=== PATIENT | female | born 1990 | race Caucasian/White ===

== ENCOUNTER 2017-04-26 20:35 | Emergency (ER) | payer BC ==
[2017-04-26 23:54] LABS: Urine Appearance Cloudy; Urine Blood Negative (Negative); Urine Color Yellow; Urine Ketones Negative (Negative); Urine Protein Negative (Negative); Urine Specific Gravity 1.019 (1.010-1.030); Urine Urobilinogen Negative (Negative)
[2017-04-27] MEDS ORDERED: Ketorolac INJ* 30 MG/ML 1 ML VIAL IV PUSH ONE (00:01)
[2017-04-27] MEDS ORDERED: NS 0.9% 1000 ML* 1,000 ML IV ONE (00:01)
[2017-04-27] MEDS ORDERED: Levofloxacin 500 MG IVPREMIX(* 500 MG/100 ML BAG IVPB ONE (00:01)
[2017-04-27 00:39] LABS: ABS Basophils 0 10^3/ul (0-0.2); ABS Eosinophils 0.2 10^3/ul (0-0.6); ABS Lymphocytes 3.7 10^3/ul (1.0-4.8); ABS Monocytes 0.6 10^3/ul (0-0.8); ABS Nucleated RBC 0 10^3/ul; Eosinophil % 1.5 % (0-6); Hematocrit 39 % (35-47); Hemoglobin 13.2 g/dl (12.0-16.0); Lymphocyte % 32.3 % (25-47); Mean Corpuscular HGB Conc 34 g/dl (31-36); Mean Corpuscular Hemoglobin 29 pg (27-31); Mean Corpuscular Volume 85 fL (80-97); Mean Platelet Volume 8 um3 (7.4-10.4); Nucleated Red Blood Cells % 0; Platelet Count 368 10^3/ul (150-450); Red Cell Distribution Width 14 % (10.5-15); White Blood Count 11.5 10^3/ul (3.5-10.8)
[2017-04-27 00:54] LABS: EGFR Non-African American 94.9 (>60)
--- NOTE | 2017-04-27 02:10 | ED ---
Ruel Givens Angela, scribed for Zoraida Bryan MD on 04/26/17 at 2350 . GI/ HPI - HPI Summary HPI Summary: This pt is a 27 y/o female presenting to [facility] c/o urinary frequency and discomfort with urination. Pt additionally reports right sided back pain and nausea. She states that 1 month ago she was diagnosed with a UTI and was given antibiotics. 1 week later pt had the same symptoms and was diagnosed with a UTI , she was prescribed antibiotics also. Pt has taken Bactrim and Macrobid. Pt currently denies hematuria, fever, vomiting. PMHx: UTI. - History of Current Complaint Chief Complaint: EDUrogenitalProblems Time Seen by Provider: 04/26/17 23:38 Stated Complaint: DISCOMFORT URINATING/RT SIDE PAIN Hx Obtained From: Patient Hx Last Menstrual Period: 05/23/15 Onset/Duration: Started Hours Ago, Still Present Timing: Lasting Hours Current Severity: Moderate Pain Intensity: 5 Location of Pain: Diffuse Pain Radiates to: Flank - right Associated Signs and Symptoms: Positive: Back Pain, Nausea, Dysuria, UTI Symptoms - discomfort with urination. Negative: Vomiting, Fever, Hematuria Aggravating Factor(s): Nothing Alleviating Factor(s): Nothing - Allergy/Home Medications Allergies/Adverse Reactions: Allergies Allergy/AdvReac Type Severity Reaction Status Date / Time No Known Allergies Allergy Verified 04/26/17 23:34 PMH/Surg Hx/FS Hx/Imm Hx Endocrine/Hematology History: Denies: Hx Diabetes, Hx Thyroid Disease Cardiovascular History: Denies: Hx Hypertension Respiratory History: Denies: Hx Asthma History: Reports: Other Problems/Disorders - UTI - Surgical History Surgery Procedure, Year, and Place: tonsils - Immunization History Date of Influenza Vaccine: has not received Infectious Disease History: No Infectious Disease History: Denies: Traveled Outside the [place] in Last 30 Days - Family History Known Family History: Positive: Hypertension, Diabetes - Social History Alcohol Use: Occasionally Alcohol Amount: 1 glass of wine a few nights a week Substance Use Type: Reports: None Smoking Status (MU): Never Smoked Tobacco Review of Systems Negative: Fever, Chills Positive: Nausea. Negative: Vomiting Positive: dysuria, frequency. Negative: hematuria Musculoskeletal: Other - right sided back pain Neurological: Negative All Other Systems Reviewed And Are Negative: Yes Physical Exam - Summary Physical Exam Summary: VITAL SIGNS: Reviewed. GENERAL: Patient is a well-developed and nourished female who is lying comfortable in the stretcher. Patient is not in any acute respiratory distress. HEAD AND FACE: No signs of trauma. No ecchymosis, hematomas or skull depressions. No sinus tenderness. EYES: PERRLA, EOMI x 2, No injected conjunctiva, no nystagmus. EARS: Hearing grossly intact. Ear canals and tympanic membranes are within normal limits. MOUTH: Oropharynx within normal limits. NECK: Supple, trachea is midline, no adenopathy, no JVD, no carotid bruit, no c- spine tenderness, neck with full ROM. CHEST: Symmetric, no tenderness at palpation LUNGS: Clear to auscultation bilaterally. No wheezing or crackles. CVS: Regular rate and rhythm, S1 and S2 present, no murmurs or gallops appreciated. ABDOMEN: Soft. Mild RLQ tenderness with mild right CVA tenderness. No signs of distention. No rebound no guarding, and no masses palpated. Bowel sounds are normal. EXTREMITIES: FROM in all major joints, no edema, no cyanosis or clubbing. NEURO: Alert and oriented x 3. No acute neurological deficits. Speech is normal and follows commands. SKIN: Dry and warm Triage Information Reviewed: Yes Vital Signs On Initial Exam: Initial Vitals Temp Pulse Resp BP Pulse Ox 96.8 F 78 18 128/81 98 04/26/17 20:42 04/26/17 20:42 04/26/17 20:42 04/26/17 20:42 04/26/17 20:42 Vital Signs Reviewed: Yes Diagnostics - Vital Signs Vital Signs Temp Pulse Resp BP Pulse Ox 04/26/17 23:42 75 99 04/26/17 23:23 99.5 F 78 138/61 99 04/26/17 20:42 96.8 F 78 18 128/81 98 - Laboratory Result Diagrams: 04/27/17 00:20 04/27/17 00:20 Lab Statement: Any lab studies that have been ordered have been reviewed, and results considered in the medical decision making process. - CT Abdomen/Pelvis CT CT Interpretation: No Acute Changes - IMPRESSION: No bowel obstruction, free air , or free fluid. Negative for diverticulitis or colitis. Normal appendix visualized. Small nonobstructing right renal stone. No right left ureteral stone or urinary tract obstruction. Borderline fatty liver. Normal spleen. Normal pancreas. Normal adrenal glands. No obvious gallbladder abnormalities. No obvious abnormalities of the pelvic organs. Dr. Bryan has reviewed this radiology report. CT Interpretation Completed By: Radiologist ASHLEE Course/Dx - Course Assessment/Plan: This pt is a 27 y/o female who presents with urinary frequency and discomfort with urination. Pt additionally reports right sided back pain and nausea. She states that 1 month ago she was diagnosed with a UTI and was given antibiotics. 1 week later pt had the same symptoms and was diagnosed again with a UTI, she was then prescribed antibiotics as well. Pt has taken Bactrim and Macrobid. Pt currently denies hematuria, fever, vomiting. In the ED course the pt was given IV fluids and Toradol. Urinalysis is consistent with a UTI. CT abdomen/pelvis is negative. Pt will be discharged home with a prescription for Levaquin for a UTI. She is advised to follow up with her PCP. - Diagnoses Provider Diagnoses: Urinary tract infection Discharge - Discharge Plan Condition: Stable Disposition: HOME Prescriptions: Levofloxacin TAB* [Levaquin TAB*] 500 mg PO DAILY #10 tab Patient Education Materials: Urinary Tract Infection in Women (ED) Referrals: Rebekah Crump [Primary Care Provider] - 3 Days Additional Instructions: Please follow up with your primary care provider. RETURN TO EMERGENCY DEPARTMENT FOR ANY NEW OR WORSENING SYMPTOMS. The documentation as recorded by the Ruel capellan Angela accurately reflects the service I personally performed and the decisions made by me, Zoraida Bryan MD.
[2017-04-27 02:20] VITALS: BP 122/75
--- NOTE | 2017-04-27 07:37 | RAD ---
INDICATION: Abdominal pain COMPARISON: None TECHNIQUE: Noncontrast axial source images were acquired from the level hemidiaphragms to the symphysis pubis as part of CT imaging for renal stone. Lung bases: The lung bases are clear. Liver: The liver is normal in size. Noncontrast imaging shows no evidence of a hepatic mass or ductal dilatation. Gallbladder: There are no calcified gallstones. There is no evidence of wall thickening or pericholecystic fluid.. Spleen: The spleen is normal in size. The noncontrast CT appearance is normal. Pancreas: Noncontrast imaging shows no pancreatic mass or ductal dilitation. Adrenal glands: No masses are identified. Kidneys/Bladder: There is an nonobstructive lower pole right renal calculus measuring 3 mm. There are no other calculi of urinary significance CT evidence of hydronephrosis. Noncontrast imaging shows no evidence of a renal mass. The bladder is unremarkable.. Adenopathy: There is no evidence of intraperitoneal or retroperitoneal adenopathy. Evaluation is limited without oral contrast. Fluid collections: There are no free or localized fluid collections. Vessels: The aorta and iliac vessels are normal in caliber. There are no significant atherosclerotic changes. The IVC appears normal Pelvic organs: The uterus and adnexa appear normal GI tract: Evaluation of the bowel is limited without oral contrast. The stomach, small bowel, and lower GI tract appear grossly normal. There are no obstructive findings. The appendix is visualized and appears normal. Soft tissues: No soft tissue abnormalities of the extraperitoneal abdomen or pelvis are identified. Osseous structures: There are no acute osseous findings. IMPRESSION: NO OBSTRUCTIVE, 3 MM LOWER POLE RIGHT RENAL CALCULUS, OTHERWISE NEGATIVE.
--- NOTE | 2017-04-29 09:13 | PN ---
Progress Note - Progress Note Date of Service: 04/26/17 Note: Urine culture grew Escherichia coli over 100,000. Patient was placed on Levaquin prior to discharge. Will await sensitivities. Nothing further at this time. Conchis Nickerson PA-C
--- NOTE | 2017-04-30 08:37 | PN ---
Progress Note - Progress Note Date of Service: 04/26/17 Note: Urine culture grew Escherichia coli over 100,000. Patient was placed on Levaquin prior to discharge. Levaquin is sensitive to organism. Nothing further at this time. Conchis Nickerson PA-C
== END 2017-04-27 02:20 | disposition home or self-care (01) ==
LOC: ED 20:35
DX: N39.0 Urinary tract infection, site not specified (principal); N20.0 Calculus of kidney
CPT/HCPCS: 36415; 74176; 80053; 81003; 81015; 84702; 85025; 86140; 87077; 87086; 87186; 96360; 96374; 96375; 99283; J1885; J1956

== ENCOUNTER 2019-03-17 11:11 | Emergency (ER) | payer BC, OTHER ==
--- OUTSIDE RECORDS SUMMARY | 2019-03-17 11:19 | XMS REPORT | Continuity of Care Document ---
:1990 External Reference #:[id number] Author Name Martínez Brooks NP (transmitted by agent of provider Minerva Ojeda) Address [address], [place] [address] Care Team Providers Name Role Phone Camila العلي MD - Internal Medicine Care Team Information [employer] Problems Active Problems Provider Date Bipolar disorder Martínez Brooks NP Onset: 11/21/2017 Anxiety Martínez Brooks NP Onset: 11/21/2017 Herpes simplex type 1 infection Martínez Brooks NP Onset: 11/21/2017 Social History Type Date Description Comments Sex Unknown ETOH Use Currently consumes alcohol 3 drinks/week Tobacco Use Start: Unknown Patient has never smoked Smoking Status Reviewed: 02/05/19 Patient has never smoked Exercise Type/Frequency Exercises rarely Allergies, Adverse Reactions, Alerts Description No Known Drug Allergies Medications Active Medications SIG Qnty Indications Ordering Provider Date Omeprazole 1 by mouth once 30caps R10.9 Martínez Brooks NP 02/05/[address] Bransonaguila use 2 sprays in 16units J06.9 Francescaofiharlan Aguilar, 11/06/2018 Propionate each nostril one HALL MONITOR 50mcg/Act time a day Suspension Paroxetine HCL take 1 tablet 180tabs Martínez Brooks NP 02/13/2018 20mg twice a day Tablets Estarylla one tablet daily 84tabs Martínez Brooks NP 01/07/2018 0.25-35mg-mcg Tablets Valacyclovir HCL 1 by mouth every 90tabs Martínez Brooks NP 01/07/2018 500mg day Tablets Baclofen take 1/2-1 30tabs M54.2 Martínez Brooks NP 11/21/2017 10mg Tablets tablet by mouth every 8 hours as needed for muscle spasms Immunizations CPT Code Status Date Vaccine Reaction Lot # [id number] Given 02/18/2018 Hepatitis A Vaccine Adult No immediate [id number] Dosage reaction...jh Vital Signs Date Vital Result Comment 02/05/2019 9:37am Height 67 inches 5'7" Weight 235.00 lb Heart Rate 87 /min BP Systolic 123 mmHg BP Diastolic 79 mmHg Body Temperature 98.2 F O2 % BldC Oximetry 98 % BMI (Body Mass Index) 36.8 kg/m2 11/06/2018 2:10pm Height 67 inches 5'7" Weight 229.12 lb Heart Rate 107 /min BP Systolic 122 mmHg BP Diastolic 82 mmHg Body Temperature 100.1 F O2 % BldC Oximetry 100 % BMI (Body Mass Index) 35.9 kg/m2 Results Description No Information Available Procedures Description No Information Available Medical Devices Description No Information Available Encounters Type Date Location Provider Dx Diagnosis Office Visit 11/06/2018 Financial Sales Manager Internal Liset Aguilar, J06.9 Acute upper 2:20p Medicine - [facility] HALL MONITOR respiratory infection, unspecified Assessments Date Code Description Provider 02/05/2019 K62.5 Hemorrhage of anus and rectum Martínez Brooks NP 02/05/2019 Z13.220 Encounter for screening for lipoid disorders Martínez Brooks NP 02/05/2019 R10.9 Unspecified abdominal pain Martínez Brooks NP 11/06/2018 J06.9 Acute upper respiratory infection, unspecified Zsofia PASHA Aguilar Plan of Treatment 02/05/2019 - Martínez Brooks NPK62.5 Hemorrhage of anus and rectumNew Labs:Stool Occult Blood, Screen, Ordered: 02/05/19Comments:Have the bloodwork done today and collect the stool samples as soon as possible.I have submitted thereferral to the dimmer board operator as we discussed.Referral:Linda Patten M.D., Single Specialty BaewrV70.220 Encounter for screening for lipoid xbsyrzpfyV86.9 Unspecified abdominal painNew Medication:Omeprazole 20 mg - 1 by mouth once dailyComments:Start taking the omeprazole once daily. Functional Status Description No Information Available Mental Status Description No Information Available Referrals Refer to Reason for Referral Status Appt Date Kiersten Bustos MD Created [address], [place] [address] [phone] Linda Patten M.D. [facility] [address] [place] [address] [phone]
--- OUTSIDE RECORDS SUMMARY | 2019-03-17 11:19 | XMS REPORT ---
:1990 Author Organization [facility] Care Team Providers Name Role Phone Desirae Livingston Primary Care Physician Unavailable Allergies, Adverse Reactions, Alerts Allergy Code CodeSystem Reaction Severity Criticality Status Start Substance Date Moderate Medications Medication Medication Medication Start Stop Route Dose Status Fill Code CodeSystem Date Date Instructions RxNorm Problems Problem Name Code CodeSystem Alternate Alternate Start End Status Narrative Code CodeSystem Date Date Adjustment 55212871 SNOMED-CT 2018-03 Active disorder 05-05 with depressed mood Relevant diagnostic tests/laboratory data Narrative No Information Procedures Procedure Code CodeSystem Target Date of Status Service Device Device Device Name Site Procedure Delivery Code Name UID Location SNOMED-CT () 2019-03-04 [facility] [place] [address], [place], [id number] Encounters/Encounter Diagnoses Encounter Encounter Diagnosis Diagnosis Diagnosis Date of Service Name Code Code Name CodeSystem Diagnosis Delivery Location Initial [id number] Adjustment SNOMED-CT 2019-03-04 [facility] [address] [place], [place], [id number] Vital Signs No Information Social History Element Description Description Start End Code CodeSystem AdditionalInfo Date Date SexAssignedAtBirth Female 1989-03 F AdministrativeGender 03-27 Hospital Discharge Instructions Reason For Referral Medical Equipment FDA Assessments
[2019-03-17 11:21] VITALS: BP 130/84
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
== END 2019-03-17 13:15 | disposition home or self-care (01) ==
LOC: UCCORT 11:11
DX: S40.012A Contusion of left shoulder, initial encounter (principal); R51 Headache; V49.88XA Car occupant (driver) (passenger) injured in other specified transport accidents, initial encounter; Y92.9 Unspecified place or not applicable
CPT/HCPCS: 99211; G0463

== ENCOUNTER 2021-03-17 06:09 | Inpatient (IN) ==
[2021-03-17] MEDS ORDERED: Lactated Ringers 1000 ml BAG 1,000 ML IV ONE (06:44)
[2021-03-17] MEDS ORDERED: Buffered Lidocaine 1% SYRIN 1 ml INTRADERM ONE (06:44)
[2021-03-17] MEDS ORDERED: Lactated Ringers 1000 ml BAG 1,000 ML IV SCH ×2 (07:00→09:00)
[2021-03-17 07:11] LABS: ABS Lymphocytes 0.9 10^3/ul (1.0-4.8); ABS Monocytes 0.3 10^3/ul (0-0.8); ABS Neutrophils 8.1 10^3/ul (1.5-7.7); Eosinophil % 0.1 %; Hematocrit 38 % (35-47); Lymphocyte % 9.4 %; Mean Corpuscular HGB Conc 34 g/dL (31-36); Mean Corpuscular Hemoglobin 30 pg (27-31); Mean Corpuscular Volume 86 fL (80-97); Mean Platelet Volume 9.4 fL (7.4-10.4); Platelet Count 317 10^3/uL (150-450); Red Cell Distribution Width 15 % (10-15); White Blood Count 9.4 10^3/uL (3.5-10.8)
[2021-03-17] MEDS ORDERED: Oxytocin in LR 20 UNITS/1,000 ML BAG IVPB ONE (07:19)
[2021-03-17] MEDS ORDERED: Glycerin ADULT 2.4 gm SUPP PR PRN (08:01)
[2021-03-17] MEDS ORDERED: Witch Hazel PAD JAR TOPICAL PRN (08:01)
[2021-03-17] MEDS ORDERED: Oxytocin in LR 20 UNITS/1,000 ML BAG IVPB SCH (09:00)
[2021-03-17] MEDS: Dibucaine 1% OINT 28.35 GM TUBE PR PRN (09:08)
[2021-03-18 07:25] LABS: ABS Lymphocytes 1.7 10^3/ul (1.0-4.8); ABS Monocytes 0.6 10^3/ul (0-0.8); ABS Neutrophils 7.9 10^3/ul (1.5-7.7); Eosinophil % 0.3 %; Hematocrit 32 % (35-47); Lymphocyte % 16.3 %; Mean Corpuscular HGB Conc 34 g/dL (31-36); Mean Corpuscular Hemoglobin 30 pg (27-31); Mean Corpuscular Volume 88 fL (80-97); Mean Platelet Volume 9.1 fL (7.4-10.4); Platelet Count 264 10^3/uL (150-450); Red Blood Count 3.65 10^6 /uL (3.70-4.87); Red Cell Distribution Width 16 % (10-15); White Blood Count 10.2 10^3/uL (3.5-10.8)
[2021-03-19] MEDS: Dibucaine 1% OINT 28.35 GM TUBE PR PRN ×2 (09:27→17:39)
[2021-03-19 19:23] VITALS: BP 127/71
== END 2021-03-19 21:00 | disposition home or self-care (01) | DRG 560 ==
LOC: MCHOBOUT 06:09 → MCHOB 06:43
PROVIDERS: ADMIT Midwife; ATTEND Midwife